=== PATIENT | female | born 1925 | race Caucasian/White ===

== ENCOUNTER 2017-12-02 12:45 | Emergency (ER) | payer OTHER ==
[~2017-12-02] VITALS: Ht 154.9 cm; Wt 136.1 kg
[~2017-12-02 12:45] MED LIST: ACET325 PO; ALBU3IS INH; ALBU90OI INH; AMLO5 PO; Amaryl2 MG PO; BENZ100A PO; BISA10S PR; Citalopram HBr10 MG PO; DOCU100 PO; EZET10 PO; FAMO20 PO; FURO40 PO; GLIM2 PO; LEVFLO250 PO; LEVSOD137 PO; Lisinopril2.5 MG PO; METR500 PO; POTCHL20ER PO; ROBITUSSIN COU118 M1 PO; Ventolin5 MG/1 ML INH
[2017-12-02] MEDS ORDERED: VENL75ER PO (13:10)
== END 2017-12-02 15:56 | disposition home or self-care (01) ==
LOC: ER 12:45
DX: T14.8XXA Other injury of unspecified body region, initial encounter (principal); M25.551 Pain in right hip; M25.561 Pain in right knee; F03.90 Unspecified dementia, unspecified severity, without behavioral disturbance, psychotic disturbance, mood disturbance, and anxiety; E11.9 Type 2 diabetes mellitus without complications; J45.909 Unspecified asthma, uncomplicated; W19.XXXA Unspecified fall, initial encounter
CPT/HCPCS: 73502; 73562-RT; 99283